=== PATIENT | female | born 1950 | race Caucasian/White ===

== ENCOUNTER → 2016-06-05 | Outpatient (CLI) | payer BC ==
--- NOTE | 2016-06-09 08:49 | MM ---
Reason for exam: screening (asymptomatic). Last mammogram was performed 1 year and 2 months ago. History: Patient is postmenopausal. Benign left mammotome panel of the left breast, June 24, 2010. Benign excisional biopsy of the left breast, September 03, 2005. Benign excisional biopsy of the right breast, September 03, 2005. Benign cyst aspiration of the right breast. Physical Findings: A clinical breast exam by your physician is recommended on an annual basis and results should be correlated with mammographic findings. MG Screening Mammo w CAD Bilateral CC and MLO view(s) were taken. Prior study comparison: April 09, 2015, bilateral MG screening mammo w CAD. September 14, 2013, bilateral MG screening mammo w CAD. June 10, 2010, bilateral digital screening mammo w/CAD. The breast tissue is heterogeneously dense. This may lower the sensitivity of mammography. Previous mammotome biopsy in the left breast. No significant changes when compared with prior studies. ASSESSMENT: Negative, BI-RAD 1 RECOMMENDATION: Routine screening mammogram of both breasts in 1 year.
== END ==
LOC: RADMAMWWP 16:24
PROVIDERS: ATTEND Obstetrics & Gynecology
DX: Z12.31 Encounter for screening mammogram for malignant neoplasm of breast (principal)

== ENCOUNTER → 2017-11-04 | Outpatient (CLI) | payer BC ==
--- NOTE | 2017-11-05 15:19 | MM ---
Reason for exam: screening (asymptomatic). Last mammogram was performed 1 year and 5 months ago. History: Patient is postmenopausal. Benign left mammotome panel of the left breast, June 24, 2010. Benign excisional biopsy of the left breast, September 03, 2005. Benign excisional biopsy of the right breast, September 03, 2005. Benign cyst aspiration of the right breast. Physical Findings: A clinical breast exam by your physician is recommended on an annual basis and results should be correlated with mammographic findings. MG Screening Mammo w CAD Bilateral CC and MLO view(s) were taken. Prior study comparison: June 05, 2016, bilateral MG screening mammo w CAD. April 09, 2015, bilateral MG screening mammo w CAD. The breast tissue is heterogeneously dense. This may lower the sensitivity of mammography. There is no discrete abnormality. No significant changes when compared with prior studies. ASSESSMENT: Negative, BI-RAD 1 RECOMMENDATION: Routine screening mammogram of both breasts in 1 year.
== END | disposition home or self-care (01) ==
LOC: RADMAMWWP 16:33
PROVIDERS: ATTEND Obstetrics & Gynecology
DX: Z12.31 Encounter for screening mammogram for malignant neoplasm of breast (principal)
CPT/HCPCS: 77067

== ENCOUNTER → 2019-02-21 | Outpatient (CLI) | payer BC ==
--- NOTE | 2019-02-21 10:19 | US ---
EXAMINATION TYPE: US kidneys/renal and bladder DATE OF EXAM: 02/21/2019 COMPARISON: NONE CLINICAL HISTORY: Z87.440 HX UTI, R30.0 DYSURIA,N39.0 FREQUENT URINATION. Recurrent UTI x 2 months EXAM MEASUREMENTS: Right Kidney: 9.0 x 5.4 x 4.3 cm Left Kidney: 9.0 x 6.1 x 4.2 cm Post Void Residual Volume: 18.6 mL Right Kidney: No hydronephrosis or masses seen Left Kidney: No hydronephrosis or masses seen Bladder: wnl Bilateral Jets seen: yes Normal Post Void Residual: yes, as volume is less than 50.0ml There is no evidence for hydronephrosis at this point in time. No nephrolithiasis is seen. No she s are identified. The urinary bladder is anechoic. Bilateral ureteral jets are seen. IMPRESSION: Unremarkable renal ultrasound. No hydronephrosis or nephrolithiasis. No abnormal post voi d residual of the urinary bladder.
== END | disposition home or self-care (01) ==
LOC: RADUSWWP 09:35
PROVIDERS: ATTEND Family Medicine
DX: N39.0 Urinary tract infection, site not specified (principal); R30.0 Dysuria
CPT/HCPCS: 76770

== ENCOUNTER → 2019-02-21 | Outpatient (CLI) | payer BC ==
--- NOTE | 2019-02-22 10:48 | MM ---
Reason for exam: screening (asymptomatic). Last mammogram was performed 1 year and 4 months ago. History: Patient is postmenopausal. Benign left mammotome panel of the left breast, June 24, 2010. Benign excisional biopsy of the left breast, September 03, 2005. Benign excisional biopsy of the right breast, September 03, 2005. Benign cyst aspiration of the right breast. Physical Findings: A clinical breast exam by your physician is recommended on an annual basis and results should be correlated with mammographic findings. MG Screening Mammo w CAD Bilateral CC and MLO view(s) were taken. Prior study comparison: November 04, 2017, bilateral MG screening mammo w CAD. June 05, 2016, bilateral MG screening mammo w CAD. The breast tissue is heterogeneously dense. This may lower the sensitivity of mammography. No suspicious abnormality. Left biopsy marker. No significant changes when compared with prior studies. ASSESSMENT: Negative, BI-RAD 1 RECOMMENDATION: Routine screening mammogram of both breasts in 1 year.
== END | disposition home or self-care (01) ==
LOC: RADMAMWWP 09:20
PROVIDERS: ATTEND Obstetrics & Gynecology
DX: Z12.31 Encounter for screening mammogram for malignant neoplasm of breast (principal)
CPT/HCPCS: 77067

== ENCOUNTER → 2019-08-11 | Outpatient (CLI) | payer BC | END | disposition home or self-care (01) | LOC: LABWHC1 10:52 | PROVIDERS: ATTEND Orthopaedic Surgery | DX: M25.532 Pain in left wrist (principal) | CPT/HCPCS: 36415; 82306 ==

== ENCOUNTER → 2020-07-30 | Outpatient (CLI) | payer MEDICARE ==
--- NOTE | 2020-07-30 16:41 | BD ---
EXAMINATION TYPE: Axial Bone Density DATE OF EXAM: 07/30/2020 COMPARISON: 05/18/2006 CLINICAL HISTORY: Height: 62.2 IN Weight: 161 LBS FRAX RISK QUESTIONS: History of Fracture in Adulthood: LT WRIST AGE 66 Secondary Osteoporosis: 3. Menopause before 45: AGE 51 RISK FACTORS HISTORY OF: History of Wrist Fracture: YES LEFT AGE 66 Surgery to Spine: L4 L5 FUSION When: 2006 Active: YES Postmenopausal woman: AGE 51 MEDICATIONS: Thyroid Medications: YES Which medication: Levothyroxine How Lon+ YEARS Additional Medications: LEVOTHYROXINE, VIT D, MULTI VIT, HIGH CHOLESTEROL MEDS, TYLENOL EXAM MEASUREMENTS: Bone mineral densitometry was performed using the [employer] System. PT HAD L4 L5 FUSION IN 2006 Bone mineral density about the R hip (g/cm2): 0.693 Bone mineral density about the L hip (g/cm2): 0.770 T Score values are as follows: -----R Neck: -2.5 -----L Neck: -1.9 -----R Total: -2.0 -----L Total: -1.7 Bone mineral density has: Decreased -12.4% since study of: 05/18/2006 Bone mineral density about the R Wrist (g/cm2): 0.387 T Score values are as follows: -----Dist. R+U: -4.3 -----Prox. R+U: -4.3 -----Radius total: -4.8 Bone mineral density BASELINE IMPRESSION: Osteoporosis. NOTE: T-SCORE=SD OF THE YOUNG ADULT MEAN.
--- NOTE | 2020-08-01 14:57 | MM ---
Reason for exam: screening (asymptomatic). Last mammogram was performed 1 year and 5 months ago. History: Patient is postmenopausal. Benign left mammotome panel of the left breast, June 24, 2010. Benign excisional biopsy of the left breast, September 03, 2005. Benign excisional biopsy of the right breast, September 03, 2005. Benign cyst aspiration of the right breast. Physical Findings: A clinical breast exam by your physician is recommended on an annual basis and results should be correlated with mammographic findings. MG 3D Screening Mammo W/Cad Bilateral CC and MLO view(s) were taken. Prior study comparison: February 21, 2019, bilateral MG screening mammo w CAD. November 04, 2017, bilateral MG screening mammo w CAD. The breast tissue is heterogeneously dense. This may lower the sensitivity of mammography. No significant changes when compared with prior studies. ASSESSMENT: Benign, BI-RAD 2 RECOMMENDATION: Routine screening mammogram of both breasts in 1 year.
== END | disposition home or self-care (01) ==
LOC: RADMAMWWP 13:58
PROVIDERS: ATTEND Family Medicine
DX: Z12.31 Encounter for screening mammogram for malignant neoplasm of breast (principal); Z13.820 Encounter for screening for osteoporosis; M81.0 Age-related osteoporosis without current pathological fracture; Z78.0 Asymptomatic menopausal state
CPT/HCPCS: 77063; 77067; 77080

== ENCOUNTER 2021-08-26 08:13 | Day surgery (SDC) | payer MEDICARE ==
[2021-08-21 14:39] VITALS: BMI 27.3
--- NOTE | 2021-08-26 07:45 | P.GSHP ---
History of Present Illness H&P Date: 08/26/21 CHIEF COMPLAINT: Colon screen HISTORY OF PRESENT ILLNESS: The patient is a 71-year-old female who presents for colon screen. Lower endoscopy was offered for further evaluation and management. PAST MEDICAL HISTORY: Please see list. PAST SURGICAL HISTORY: Please see list. MEDICATIONS: Please see list. ALLERGIES: Please see list. SOCIAL HISTORY: No illicit drug use FAMILY HISTORY: No reports of Crohn disease or ulcerative colitis. REVIEW OF ORGAN SYSTEMS: CONSTITUTIONAL: No reports of fevers or chills. PHYSICAL EXAM: VITAL SIGNS: Stable GENERAL: Well-developed pleasant in no acute distress. HEENT: No scleral icterus. Extraocular movements grossly intact. Moist buccal mucosa. NECK: Supple without lymphadenopathy. CHEST: Unlabored respirations. Equal bilateral excursions. CARDIOVASCULAR: Regular rate and rhythm. Distal 2+ pulses. ABDOMEN: Soft, nontender, nondistended. MUSCULOSKELETAL: No clubbing, cyanosis, or edema. ASSESSMENT: 1. Colon screen. PLAN: 1. Recommend proceeding with a lower endoscopy Past Medical History Past Medical History: Hyperlipidemia, Thyroid Disorder Additional Past Medical History / Comment(s): POSITIVE COLOGARD History of Any Multi-Drug Resistant Organisms: None Reported Past Surgical History: Back Surgery Additional Past Surgical History / Comment(s): BACK SURGERY. SPINAL CORD STIM ULATOR Past Anesthesia/Blood Transfusion Reactions: No Reported Reaction Smoking Status: Never smoker - Past Family History Brother(s) Family Medical History: Cancer Medications and Allergies Home Medications Medication Instructions Recorded Confirmed Type Atorvastatin [Lipitor] 20 mg PO DAILY 08/21/21 08/21/21 History Celecoxib [CeleBREX] 200 mg PO DAILY PRN 08/21/21 08/21/21 History DULoxetine HCL [Cymbalta] 30 mg PO HS 08/21/21 08/21/21 History Levothyroxine Sodium [Levoxyl] 75 mcg PO DAILY 08/21/21 08/21/21 History Allergies Allergy/AdvReac Type Severity Reaction Status Date / Time cephalexin [From Keflex] Allergy Anaphylaxis Verified 08/21/21 14:29 Penicillins Allergy Anaphylaxis Verified 08/21/21 14:29
[~2021-08-26 08:13] MED LIST: LACTATED RINGERS 1,000 ML IV SCH
[2021-08-26 08:27] VITALS: TEMP 98.1
[2021-08-26] MEDS ORDERED: PROPOFOL 10 MG/ML 20 ML VIAL IV ONE (09:01)
[2021-08-26 09:30] VITALS: RESP 15
--- NOTE | 2021-08-26 09:44 | P.PCN ---
Date of Procedure: 08/26/21 Description of Procedure: PREOPERATIVE DIAGNOSIS: Positive abnormal stool tests POSTOPERATIVE DIAGNOSIS: Tubular adenoma sigmoid colon Tubular adenoma transverse colon Sigmoid diverticulosis OPERATION: Colonoscopy to the ileocecal valve and appendiceal orifice, cecum Colonoscopy with hot snare polypectomy Colonoscopy with cold forceps biopsy SURGEON: Myra Connolly MD. ANESTHESIA: MAC. INDICATIONS: The patient is an 71-year-old female who presents for first colonoscopy. She presents for positive abnormal stool tests, Cologaurd. Benefits and risks were described and informed consent was obtained. DESCRIPTION OF PROCEDURE: The patient had undergone Sutab prep. The patient had been brought into the operating room and laid in the left lateral decubitus position. After adequate intravenous sedation, the rectum was examined with 2% lidocaine jelly. No external hemorrhoids were encountered. The rectal tone was within normal limits. No lesions were palpated in the rectal vault. An Olympus colonoscope was advanced until the cecum, ileocecal valve and appendiceal orifice were clearly viewed. The prep was excellent. Sigmoid diverticulosis was encountered. Colonic polyps were found and removed. No evidence of focal colitis was found. Retroflexion of the scope demonstrated grade 1 internal hemorrhoids without active bleeding or inflammation. The colon was desufflated. The patient had tolerated the procedure well. Withdrawal time was over 6 minutes. FINDINGS: Aronchick preparation quality scale 1 (1-5) Internal hemorrhoids, grade 1 No external hemorrhoids No arteriovenous malformations. Sigmoid diverticulosis Removal of 2 polyps: - Snare polypectomy 15 cm from the anal verge, 12 mm tubulovillous adenoma polyp, sigmoid colon - Cold forceps biopsy at proximal transverse colon, 4 mm polyp. No focal colitis. RECOMMENDATIONS: Repeat colonoscopy in 3 years, 2024 Plan - Discharge Summary Discharge Rx Participant: No New Discharge Prescriptions: Continue Levothyroxine Sodium [Levoxyl] 75 mcg PO DAILY DULoxetine HCL [Cymbalta] 30 mg PO HS Celecoxib [CeleBREX] 200 mg PO DAILY PRN PRN Reason: Pain Atorvastatin [Lipitor] 20 mg PO DAILY Discharge Medication List Atorvastatin [Lipitor] 20 mg PO DAILY 08/21/21 [History] Celecoxib [CeleBREX] 200 mg PO DAILY PRN 08/21/21 [History] DULoxetine HCL [Cymbalta] 30 mg PO HS 08/21/21 [History] Levothyroxine Sodium [Levoxyl] 75 mcg PO DAILY 08/21/21 [History] Follow up Appointment(s)/Referral(s): Myra Connolly MD [STAFF PHYSICIAN] - 09/10/21 Patient Instructions/Handouts: Diverticulosis (GEN), Diverticulosis Diet (GEN), Colorectal Polyps (GEN) Activity/Diet/Wound Care/Special Instructions: Repeat colonoscopy in 3 years, 2024 Discharge Disposition: HOME SELF-CARE
[2021-08-26 09:48] VITALS: BP 133/81; PULSE 63
== END 2021-08-26 10:03 | disposition home or self-care (01) ==
LOC: ORWHC2ENDO 08:13
PROVIDERS: ATTEND Surgery Plastic and Reconstructive Surgery
DX: Z12.11 Encounter for screening for malignant neoplasm of colon (principal); D12.5 Benign neoplasm of sigmoid colon; D12.3 Benign neoplasm of transverse colon; K57.30 Diverticulosis of large intestine without perforation or abscess without bleeding; K64.0 First degree hemorrhoids; E78.5 Hyperlipidemia, unspecified; E07.9 Disorder of thyroid, unspecified; Z80.9 Family history of malignant neoplasm, unspecified; Z79.899 Other long term (current) drug therapy; Z79.890 Hormone replacement therapy; Z88.1 Allergy status to other antibiotic agents; Z88.0 Allergy status to penicillin
CPT/HCPCS: 88305; 45380; 45385; J2704

== ENCOUNTER → 2022-08-04 | Outpatient (CLI) | payer MEDICARE ==
--- NOTE | 2022-08-04 18:37 | BD ---
EXAMINATION TYPE: Axial Bone Density DATE OF EXAM: 08/04/2022 CLINICAL HISTORY: 72 years old Female. ICD-10 CODE: M81.0 AGE RELATED OSTEOPOROSIS Height: 62" Weight: 161.3 FRAX RISK QUESTIONS: Alcohol (3 or more units per day): No Family History (Parent hip fracture): No Glucocorticoids (More than 3mos): No (Ex: prednisone, prednisolone, methylprednisolone, dexamethasone, and hydrocortisone). History of Fracture in Adulthood: Yes, left wrist Secondary Osteoporosis: 1. Type 1 Diabetes: No 2. Hyperthyroidism: No 3. Menopause before 45: No 4. Malnutrition: No 5. Chronic liver disease: No Rheumatoid Arthritis: No Current Tobacco Use: No RISK FACTORS HISTORY OF: Hip Fracture (Right/Left): No Spine Fracture: No History of Wrist Fracture: No Surgery to Spine/Hip(right/left)/Wrist (right/left): Yes, left wrist and lumbar spine surgery L4&L5 d ue to degeneration Family History of Osteoporosis: No Active: Yes Diet low in dairy products/other sources of calcium: No Lost more than 2 inches in height since high school: Yes, pt states she was 5'5" Frequent falls: No Poor Health: No Hyperparathyroidism: No Adrenal Insufficiency: No MEDICATIONS: Prednisone or other steroids: No Thyroid Medications: Yes Which medication: Levothyroxine How Lon+ years Osteoporosis Medications: No Additional Medications: Levothyroxine, cholesterol medication Additional History: None EXAM MEASUREMENTS: Bone mineral densitometry was performed using the [employer] System. Bone mineral density about the R hip (g/cm2): 0.739 Bone mineral density about the L hip (g/cm2): 0.782 T Score values are as follows: -----R Neck: -2.6 -----L Neck: -2.1 -----R Total: -2.1 -----L Total: -1.8 Z Score values are as follows: -----R Neck: -1.0 -----L Neck: -0.5 -----R Total: -0.8 -----L Total: -0.5 Bone mineral density has: decreased -1.8% since study of: 07/30/2020 Bone mineral density about the R Wrist (g/cm2): 0.396 T Score values are as follows: -----Dist. R+U: -3.8 -----Prox. R+U: -4.2 -----Radius total: -4.6 Z Score values are as follows: -----Dist. R+U: -1.8 -----Prox. R+U: -2.3 -----Radius total: -2.7 Bone mineral density has: increased 2.2% since study of: 07/30/2020 FRAX%s: The graph provided illustrates a 23.6% chance for a major osteoporotic fx and a 6.3% chance f or the hips probability for fx in 10 years time. IMPRESSION: Osteoporosis (T Score less than -2.5). There is increased fracture risk and therapy is usually indicated based on age. Re-Screen 1-2 years. NOTE: T-SCORE=SD OF THE YOUNG ADULT MEAN.
--- NOTE | 2022-08-05 09:12 | MM ---
Reason for Exam: Screening (asymptomatic). Last mammogram was performed 2 year(s) and 0 month(s) ago. Patient History: Menarche at age 17. First Full-Term at age 21. Postmenopausal. 09/03/2005, Benign Excisional Biopsy on the left side. 09/03/2005, Benign Excisional Biopsy on the right side. Benign Cyst Aspiration on the right side. 06/24/2010, Benign Core Biopsy on the left side. Risk Values: Chanda 5 year model risk: 2.1%. NCI Lifetime model risk: 5.9%. Prior Study Comparison: 11/04/2017 Bilateral Screening Mammogram, [facility]. 02/21/2019 Bilateral Screening Mammogram, [facility] 07/30/2020 Bilateral Screening Mammogram, [facility]. Tissue Density: The breast tissue is heterogeneously dense. This may lower the sensitivity of mammography. Findings: Analyzed By CAD. Microclip anterior left breast from prior biopsy. There is no suspicious group of microcalcifications or new suspicious mass in either breast. Overall Assessment: Negative, BI-RAD 1 Management: Screening Mammogram of both breasts in 1 year. . Patient should continue monthly self-breast exams. A clinical breast exam by your physician is recommended on an annual basis. This exam should not preclude additional follow-up of suspicious palpable abnormalities. Note on Chanda scores and lifetime risk: 1. A Chanda score greater than 3% is considered moderate risk. If this is the case, consider specialist referral to assess eligibility for a risk reducing agent. 2. If overall lifetime risk for the development of breast cancer is 20% or higher, the patient may qualify for future screening with alternating mammogram and breast MRI. Electronically signed and approved by: Dale Arthur M.D. Radiologist
== END | disposition home or self-care (01) ==
LOC: RADBDWWP 16:09
PROVIDERS: ATTEND Family Medicine
DX: Z12.31 Encounter for screening mammogram for malignant neoplasm of breast (principal); M81.0 Age-related osteoporosis without current pathological fracture; M85.89 Other specified disorders of bone density and structure, multiple sites
CPT/HCPCS: 77063; 77067; 77080

== ENCOUNTER 2023-10-04 16:33 | Emergency (ER) | payer MEDICARE ==
[2023-10-04] MEDS ORDERED: ACETAMINOPHEN TAB 500 MG TAB ONE (17:31)
[2023-10-04] MEDS ORDERED: IBUPROFEN 600 MG TAB PO ONE (20:22)
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
== END 2023-10-04 20:33 | disposition home or self-care (01) ==
LOC: EC 16:33
DX: Y04.8XXA Assault by other bodily force, initial encounter
CPT/HCPCS: 70486; 72110; 99284

== ENCOUNTER → 2023-10-13 | Outpatient (CLI) | payer MEDICARE ==
--- NOTE | 2023-10-20 14:31 | MM ---
Reason for Exam: Screening (asymptomatic). Last mammogram was performed 1 year(s) and 2 month(s) ago. Patient History: Menarche at age 17. First Full-Term at age 21. Postmenopausal. Patient has history of breast feeding. 09/03/2005, Benign Excisional Biopsy on the left side. 09/03/2005, Benign Excisional Biopsy on the right side. Benign Cyst Aspiration on the right side. 06/24/2010, Benign Core Biopsy on the left side. Risk Values: Chanda 5 year model risk: 2.2%. NCI Lifetime model risk: 5.6%. Prior Study Comparison: 02/21/2019 Bilateral Screening Mammogram, [facility]. 07/30/2020 Bilateral Screening Mammogram, [facility]. 08/04/2022 Bilateral MG 3D screening mammo w/cad, [facility]. Tissue Density: The breasts are heterogeneously dense, which may obscure small masses. Findings: Analyzed By CAD. Left breast biopsy clip. Right breast: There is no suspicious group of microcalcifications or new suspicious mass. Left breast: There is no suspicious group of microcalcifications or new suspicious mass. Overall Assessment: Benign, BI-RAD 2 Management: Screening Mammogram of both breasts in [address] [facility] will attempt to contact patient to return for supplemental views and ultrasound if indicated. Patient should continue monthly self-breast exams. A clinical breast exam by your physician is recommended on an annual basis. This exam should not preclude additional follow-up of suspicious palpable abnormalities. Note on Chanda scores and lifetime risk: 1. A Chanda score greater than 3% is considered moderate risk. If this is the case, consider specialist referral to assess eligibility for a risk reducing agent. 2. If overall lifetime risk for the development of breast cancer is 20% or higher, the patient may qualify for future screening with alternating mammogram and breast MRI. Electronically signed and approved by: Bin Armenta DO
== END | disposition home or self-care (01) ==
LOC: RADMAMWWP 08:58
PROVIDERS: ATTEND Family Medicine
DX: Z12.31 Encounter for screening mammogram for malignant neoplasm of breast
CPT/HCPCS: 77063; 77067